=== PATIENT | male | born 1960 | race Caucasian/White ===

== ENCOUNTER 2016-08-26 06:58 | Emergency (ER) | payer SELFPAY ==
[2016-08-26] MEDS ORDERED: LIDOCAINE VIS-MYLANTA 30 ML UD PO ONE (07:52)
--- NOTE | 2016-08-26 07:55 | RAD ---
EXAM: Acute abdominal series. INDICATION: Abdominal pain, acute. COMPARISON: None. FINDINGS: Cardiac silhouette: Unremarkable. Janent: Unremarkable. Lobar consolidation: None. Pleural effusion: None. Pneumothorax: None. Other: None. Intraperitoneal free air: Negative. Bowel: No dilated loops of small bowel or air-fluid levels. Bones: Unremarkable. Other: None. IMPRESSION: 1. Nonspecific, nonobstructed bowel gas pattern. Electronically signed by: Edward Maya MD 08/26/2016 7:54 AM CDT
--- NOTE | 2016-08-26 10:05 | CT ---
Procedure: CT ABDOMEN PELVIS WITH IV CONTRAST Exam Date: 08/26/2016 Ordering Provider: Louis Tejeda Clinical Indication: Left lower quadrant abdominal pain Comparison: 11/27/1714 TECHNIQUE: 5 mm images were taken through the abdomen and pelvis after the administration of nonionic intravenous contrast material. Oral contrast was not administered. Coronal and sagittal reformatted images were generated. This exam was performed according to our departmental dose optimization program which includes use of automated exposure control, adjustment of the mA and/or kV according to patient size and/or use of iterative reconstruction technique. FINDINGS: Lower chest: Nonacute Abdomen: Liver and biliary system: Cirrhotic liver morphology. No liver lesions. No biliary ductal dilatation. Cholelithiasis without evidence of acute cholecystitis. Spleen: Enlarged, otherwise unremarkable. Pancreas: Unremarkable Adrenal glands: Unremarkable Kidneys: No suspicious lesions or hydronephrosis in either kidney. Lymph nodes: Shotty mesenteric and retroperitoneal lymph nodes. Retroperitoneum, abdominal wall, peritoneal cavity: No ascites. No free intraperitoneal air. Hazy infiltration of the mesentery and retroperitoneum in the lower abdomen with swirling of vessels. Vessels: No abdominal aortic aneurysm. There are portosystemic collaterals. Pelvis: Lymph nodes: No lymphadenopathy Bowel: No bowel obstruction. Colonic diverticulosis without evidence of diverticulitis. Normal appendix. No bowel wall thickening. Bladder: Unremarkable Pelvic organs: Unremarkable Bones: Nonacute IMPRESSION: 1. Features suggestive of intraperitoneal focal fat infarction in the left lower quadrant. 2. Cirrhotic liver morphology. 3. Cholelithiasis without evidence of acute cholecystitis. 4. Splenomegaly. 5. Colonic diverticulosis without evidence of diverticulitis. Electronically signed by: Osei Whitley MD 08/26/2016 10:04 AM CDT
[2016-08-26] MEDS ORDERED: ceFAZolin SODIUM 2 GM in SODIUM CHLORIDE 0.9% 100ML 100 ML IVPB ONE (10:32)
[2016-08-26] MEDS ORDERED: ceFAZolin SODIUM 1 GM VIAL ONE (10:35)
[2016-08-26] MEDS ORDERED: SODIUM CHLORIDE 0.9% 100ML 100 ML IVPB ONE (10:36)
--- NOTE | 2016-08-26 11:37 | ED.PDOC ---
History of Present Illness - General Chief Complaint: Abdominal Pain Stated Complaint: abdominal discomfort Time Seen by Provider: 08/26/16 07:04 Source: patient Exam Limitations: no limitations - History of Present Illness Initial Comments: The patient is a 56-year-old male presenting with left lower abdominal discomfort present for approximately 24 hours. The pain is worse when standing up straight or lying back flat. It is improved by leaning forward. He has had some mild nausea. pain is moderate. no vomiting. He has been having bowel movements and passing gas. No definite rebound signs. No back pain. No trauma. He had an endoscopy 7 years ago that was normal. No weight loss. No previous definite blood in stools. Timing/Duration: 24 hours Severity: moderate Improving Factors: nothing Worsening Factors: nothing Associated Symptoms: nausea/vomiting Allergies/Adverse Reactions: Allergies NO KNOWN ALLERGY Allergy (Verified 08/26/16 07:13) Home Medications: Ambulatory Orders Omeprazole Magnesium [Prilosec Otc] 20 mg PO DAILY 10/17/15 Ztgzuegliawii-Wchu-Lugqdmmihv [Fioricet] 1 ea PO Q8H PRN #21 tab 08/26/16 Review of Systems - Review of Systems Constitutional: States: no symptoms reported EENTM: States: no symptoms reported Respiratory: States: no symptoms reported Cardiology: States: no symptoms reported Gastrointestinal/Abdominal: States: see HPI Genitourinary: States: no symptoms reported Musculoskeletal: States: no symptoms reported Skin: States: no symptoms reported Neurological: States: no symptoms reported Endocrine: States: no symptoms reported All other Systems: No Change from Baseline Past Medical History (General) - Patient Medical History Hx Seizures: No Hx Stroke: No Hx Dementia: No Hx Asthma: No Hx of COPD: No Hx Cardiac Disorders: No Hx Congestive Heart Failure: No Hx Pacemaker: No Hx Hypertension: No Hx Thyroid Disease: No Hx Diabetes: No Hx Gastroesophageal Reflux: Yes Hx Renal Disease: No Hx Cancer: No Hx of HIV: No Hx Hepatitis C: No Hx MRSA: No - Vaccination History Hx Tetanus, Diphtheria Vaccination: Yes - 2010 Hx Influenza Vaccination: No Hx Pneumococcal Vaccination: No - Social History Hx Tobacco Use: Yes Hx Chewing Tobacco Use: No Hx Alcohol Use: Yes - weekends Hx Substance Use: No Hx Substance Use Treatment: No Hx Depression: No Hx Physical Abuse: No Hx Emotional Abuse: No Hx Suspected Abuse: No - Female History Patient : No Family Medical History - Family History Father Family History: No Known Living Status: Mother Living Status: Age at (years of age): 60 Cause of : cancer Physical Exam - Physical Exam General Appearance: Alert, No apparent distress Eye Exam: bilateral normal Ears, Nose, Throat: normal ENT inspection, normal pharynx Neck: full range of motion, supple, normal inspection Respiratory: chest non-tender, lungs clear, normal breath sounds, no respiratory distress, no accessory muscle use Cardiovascular/Chest: normal peripheral pulses, regular rate, rhythm, no edema Peripheral Pulses: radial,right: 2+, radial,left: 2+, dorsalis pedis,right: 2+, dorsalis pedis,left: 2+ Gastrointestinal/Abdominal: normal bowel sounds, soft, other - see history of present illness. No palpable mass. He does have a small umbilical hernia. Most of the discomfort is located in the left lower quadrant. Rectal Exam: deferred Back Exam: normal inspection, no CVA tenderness, no vertebral tenderness Extremity: normal range of motion, non-tender, normal inspection, no pedal edema , normal capillary refill Neurologic: alert, normal mood/affect, oriented x 3 Skin Exam: normal color Comments: Vital Signs - 24 hr 08/26/16 08/26/16 08/26/16 07:11 08:18 09:40 Temperature 98.5 F 98.2 F Pulse Rate [ 94 H 87 79 Left Radial] Respiratory 20 20 20 Rate Blood Pressure 154/78 141/86 152/72 [Left Arm] O2 Sat by Pulse 96 94 L 96 Oximetry Progress - Progress Progress: 08/26/16 11:39 the patient is a 56-year-old male presenting with left lower quadrant pain that appears to be due to a small area of omental ischemia. There is no evidence of bowel ischemia. The patient was seen by general surgery which is recommended conservatively following the patient as an outpatient. There is no indication for antibiotics at this time. The patient is to follow-up with his primary care doctor in 2-3 days. The patient does have findings of cirrhosis on his CT scan and does have significant anemia that is likely due to iron deficiency. He should be set up for gastroenterology for these 2 issues and started on iron once his abdominal pain is improving. He will be written for Fioricet for as needed use. Limit Tylenol use otherwise. Limit alcohol intake. ER warnings were given for any acute worsening. of note there was a mention of a left inguinal hernia on CT scan several years ago that is not noted here. there is not one seen today on CT scan and certainly not one palpable. - Results/Orders Results/Orders: Laboratory Results - last 24 hr 08/26/16 08/26/16 07:52 08:26 WBC 5.8 RBC 4.84 Hgb 10.3 L Hct 33.1 L MCV 68.5 L MCH 21.2 L MCHC 31.2 L RDW 24.9 H Plt Count 116 L MPV 8.3 Absolute Neuts (auto) 2.60 Absolute Lymphs (auto) 1.00 Absolute Monos (auto) 0.30 Absolute Eos (auto) 1.90 H Absolute Basos (auto) 0.00 Neutrophils % 44.4 Lymphocytes % 16.9 L Monocytes % 5.6 Eosinophils % 32.8 H Basophils % 0.3 Normal RBC Morphology 4+aniso PT 12.5 INR 1.110 PTT (SP) 34.0 Sodium 137 Potassium 4.3 Chloride 103 Carbon Dioxide 24 Anion Gap 14.3 BUN 16 Creatinine 0.82 BUN/Creatinine Ratio 19.5 Random Glucose 105 Serum Osmolality 275.4 Calcium 9.2 Total Bilirubin 0.4 AST 39 ALT 56 Alkaline Phosphatase 66 Serum Total Protein 8.1 Albumin 3.8 Globulin 4.3 H Albumin/Globulin Ratio 0.9 L Amylase 17 L Lipase 39 Urine Color Yellow Urine Appearance Clear Urine pH 6.0 Ur Specific [place] 1.010 Urine Protein Negative Urine Glucose (UA) Negative Urine Ketones Negative Urine Blood Negative Urine Nitrite Negative Urine Bilirubin Negative Urine Urobilinogen 0.2 Ur Leukocyte Esterase Negative Urine RBC 0-1 Urine WBC 0 Ur Epithelial Cells 0-[address] scan of the abdomen and pelvis shows some changes consistent with cirrhosis. Additionally there is a small area of possible fat necrosis in the mesentery in the left lower quadrant. No significant hernia seen on the CT scan. No evidence of any bowel ischemia. Departure - Departure Clinical Impression: Fat necrosis of omentum Disposition: Discharge to Home or Self Care Condition: Fair Departure Forms: ED Discharge - Pt. Copy, Patient Portal Self Enrollment Instructions: DI for Abdominal Pain-Adult Diet: bland diet - avoid alcohol Activity: increase activity as tolerated Referrals: Brule,Shy, IN[employer]RASTRU[employer]URE ENGINEER [Primary Care Provider] - 1-5 Days Prescriptions: Rtkgluijhuneh-Kmem-Kelfiximfk [Fioricet] 1 ea PO Q8H PRN #21 tab PRN Reason: Pain Home Medications: Ambulatory Orders Omeprazole Magnesium [Prilosec Otc] 20 mg PO DAILY 10/17/15 Bvcvzdjccbdkl-Lmdn-Izolxpzsyr [Fioricet] 1 ea PO Q8H PRN #21 tab 08/26/16 Additional Instructions: the patient is a 56-year-old male presenting with left lower quadrant pain that appears to be due to a small area of omental ischemia. There is no evidence of bowel ischemia. The patient was seen by general surgery which is recommended conservatively following the patient as an outpatient. There is no indication for antibiotics at this time. The patient is to follow-up with his primary care doctor in 2-3 days. The patient does have findings of cirrhosis on his CT scan and does have significant anemia that is likely due to iron deficiency. He should be set up for gastroenterology for these 2 issues and started on iron once his abdominal pain is improving. He will be written for Fioricet for as needed use. Limit Tylenol use otherwise. Limit alcohol intake. ER warnings were given for any acute worsening. of note there was a mention of a left inguinal hernia on CT scan several years ago that is not noted here. there is not one seen today on CT scan and certainly not one palpable.
[2016-08-26] MEDS ORDERED: HYDROcodone 7.5MG/APAP 325MG 1 EA TAB PO ONE (11:43)
[2016-08-26 12:00] VITALS: BP 150/74; TEMP 98; O2SAT 95
--- NOTE | 2016-08-26 17:34 | CONS ---
DATE OF CONSULTATION: 08/26/16 REFERRING PHYSICIAN: Dr. Louis Tejeda, Emergency Room CHIEF COMPLAINT: Abdominal pain. HISTORY OF PRESENT ILLNESS: The patient is a 56 year-old male who previously was diagnosed with a left inguinal hernia on CT scan. He presented to the Emergency Room with approximately a 24 hour history of abdominal pain without associated nausea, vomiting, fever or chills or diarrhea. He denied episode of same discrete discomfort. Denied discrete injury. He denied blood per rectum and melenic stools. PAST MEDICAL HISTORY: Otherwise unremarkable PAST SURGICAL HISTORY: Unremarkable as far as abdominal surgeries. FAMILY HISTORY: Noncontributory. SOCIAL HISTORY: The patient lives in [place]. Works in outdoor labor and working heavy equipment. PHYSICAL EXAMINATION: GENERAL: The patient is awake, alert and cooperative, and in no acute distress. CHEST: Equal breath sounds bilaterally. HEART: Regular rhythm. ABDOMEN: Soft, distended. There is tenderness in the left lower quadrant. There is tenderness over the left inguinal canal but no hernia is identified. Testicle is within normal limits. LABORATORY: White blood cell count is within normal limits. CT scan revealed what appeared to be some ischemic fat within the abdominal cavity with no sign of an obvious hernia and no sign of inflammatory process involving the bowel. No free fluid, free air or abscess cavity. He was noted to have a large amount of stool. IMPRESSION: 1. Ischemic mesenteric fat of uncertain etiology. No sign of an incarcerated hernia or strangulated hernia, or inflammatory process involving the bowel. RECOMMENDATION: Push fluids. Will treat him with some analgesics and also recommend that he work on his catharsis from above to clean out his obstipation , probably using MiraLAX. The patient is also informed to come back sooner if he develops nausea or vomiting, fever or chills, increasing abdominal pain or develops a mass in his groin. #[id number] [facility]
== END 2016-08-26 11:58 | disposition home or self-care (01) ==
LOC: ER 06:58
DX: K65.4 Sclerosing mesenteritis (principal); K21.9 Gastro-esophageal reflux disease without esophagitis; D64.9 Anemia, unspecified; Z87.891 Personal history of nicotine dependence
CPT/HCPCS: 74020; 74177; 80053; 81001; 82150; 83690; 85025; 85610; 85730; J0690; J7050

== ENCOUNTER 2016-09-01 17:33 | Emergency (ER) | payer SELFPAY ==
--- NOTE | 2016-09-01 18:27 | ED.PDOC ---
History of Present Illness - General Chief Complaint: Abdominal Pain Stated Complaint: abdominal pain Time Seen by Provider: 09/01/16 17:50 Information Source: patient, RN notes reviewed, Vital Signs reviewed Exam Limitations: no limitations - History of Present Illness Initial Comments: Patient her with c/o LUQ abdominal pain that is sharp. IT is worsened by coughing and deep breathing. No fever, chills, nausea, vomiting or diarrhea. He was seen here on 08/26/16 for LLQ abd pain. He was diagnosed with fat necrosis. He was advised to use Miralax to clean out his colon. He saw his doctor on Thursday but laxative had not started working yet. Thursday night and Thursday the laxative started working well and he feels that he got well cleaned out. On Thursday the pain moved to his LUQ and became sharp and worse. Abdominal Pain Onset Location: LUQ Pain Radiation: back - L flank Quality: severe, sharpness Timing/Duration: days - 2 Improving Factors: nothing Worsening Factors: movement, other - deep breathing and coughing Associated Symptoms: back pain, fever/chills - Low grade temp to 100.1 Review of Systems - Review of Systems Constitutional: States: fever. Denies: malaise Respiratory: States: cough. Denies: orthopnea, short of breath, stridor Cardiology: States: no symptoms reported Gastrointestinal/Abdominal: States: see HPI, abdominal pain. Denies: diarrhea, nausea, vomiting Genitourinary: States: no symptoms reported Musculoskeletal: States: back pain Skin: States: no symptoms reported Neurological: States: no symptoms reported. Denies: headache Past Medical History (General) - Patient Medical History Hx Seizures: No Hx Stroke: No Hx Dementia: No Hx Asthma: No Hx of COPD: No Hx Cardiac Disorders: No Hx Congestive Heart Failure: No Hx Pacemaker: No Hx Hypertension: No Hx Thyroid Disease: No Hx Diabetes: No Hx Gastroesophageal Reflux: Yes Hx Renal Disease: No Hx Cancer: No Hx of HIV: No Hx Hepatitis C: No Hx MRSA: No Surgical History: no surgical history - Vaccination History Hx Tetanus, Diphtheria Vaccination: Yes - 2010 Hx Influenza Vaccination: No Hx Pneumococcal Vaccination: No - Social History Hx Tobacco Use: Yes Hx Chewing Tobacco Use: No Hx Alcohol Use: Yes - weekends Hx Substance Use: No Hx Substance Use Treatment: No Hx Depression: No Hx Physical Abuse: No Hx Emotional Abuse: No Hx Suspected Abuse: No - Activities of Daily Living Hospice Agency (if applicable):: None - Female History Patient is a Female of Child Bearing Age (10 -59 yrs old): No Patient : No Family Medical History - Family History Father Family History: No Known Living Status: Mother Living Status: Age at (years of age): 60 Cause of : cancer Physical Exam - Physical Exam General Appearance: Alert, Comfortable, No apparent distress, Well Developed, Well Groomed, Well Hydrated, Well Nourished Neck: non-tender, full range of motion, supple, normal inspection Respiratory: lungs clear, normal breath sounds, no respiratory distress, no accessory muscle use Cardiovascular/Chest: regular rate, rhythm, no edema, no gallop, no murmur Gastrointestinal/Abdominal: normal bowel sounds, no organomegaly, guarding - LUQ , tenderness - LUQ Back Exam: normal inspection, no CVA tenderness, no vertebral tenderness Extremity: normal range of motion, normal inspection, no pedal edema Neurologic: alert, normal mood/affect, oriented x 3 Skin Exam: normal color, warm/dry Progress - Progress Progress: 09/01/16 20:01 Discussed lab and X-ray results. No obvious cause of his abdominal pain but he does have cirrhosis and an enlarged spleen. Needs to follow up with GI for further evaluation/management. - Results/Orders Results/Orders: Laboratory Tests 09/01/16 09/01/16 09/01/16 18:10 18:10 19:15 WBC 9.8 RBC 4.76 Hgb 10.0 L Hct 32.2 L MCV 67.7 L MCH 21.0 L MCHC 31.0 L RDW 23.9 H Plt Count 131 MPV 8.3 Absolute Neuts (auto) 3.50 Absolute Lymphs (auto) 1.20 Absolute Monos (auto) 0.50 Absolute Eos (auto) 4.50 H Absolute Basos (auto) 0.00 Neutrophils % 36.0 L Lymphocytes % 12.3 L Monocytes % 5.5 Eosinophils % 45.9 H Basophils % 0.3 Sodium 134 L Potassium 3.9 Chloride 103 Carbon Dioxide 24 Anion Gap 10.9 L BUN 15 Creatinine 0.75 BUN/Creatinine Ratio 20.0 Random Glucose 156 H Serum Osmolality 272.3 L Calcium 8.8 Total Bilirubin 0.4 AST 30 ALT 39 Alkaline Phosphatase 65 Serum Total Protein 8.2 Albumin 3.8 Globulin 4.4 H Albumin/Globulin Ratio 0.9 L Amylase 11 L Lipase 32 Monoscreen Negative - EKG/XRAY/CT CT Ordered: Yes - gallstones, cirrhosis & enlarged slpeen Departure - Departure Clinical Impression: Enlargement of spleen Abdominal pain Qualifiers: Abdominal location: left upper quadrant Qualified Code(s): R10.12 - Left upper quadrant pain Cirrhosis of liver Qualifiers: Hepatic cirrhosis type: unspecified biliary cirrhosis Qualified Code(s): K74.5 - Biliary cirrhosis, unspecified Time of Disposition: 20:03 Disposition: Discharge to Home or Self Care Condition: Good Departure Forms: ED Discharge - Pt. Copy, Patient Portal Self Enrollment Instructions: DI for Abdominal Pain-Adult Diet: low fat, low cholesterol Activity: increase activity as tolerated Referrals: Alphonso Ware MD [Consulting Staff] - 1-5 Days Home Medications: Ambulatory Orders Omeprazole Magnesium [Prilosec Otc] 20 mg PO DAILY 10/17/15
--- NOTE | 2016-09-01 19:03 | CT ---
PROCEDURE: Abdomen/Pelvis w/Contrast HISTORY: Sharp LUQ pain Indication: Same as above Comparison: None . Technique: CT of the abdomen and pelvis was done with intravenous contrast. Images were obtained from the lung base to the level of the pubic symphysis in axial plane, followed by orthogonal sagittal and coronal reconstruction. Oral contrast was not given for the study. The patient was injected with radiographic intravenously, without any documented immediate adverse reactions. This exam was performed according to our departmental dose-optimization program, which includes automated exposure control, adjustment of the mA and/or KV according to the patient's size and/or use of iterative reconstruction technique. FINDINGS: Images through the lung bases do not show any focal infiltrates or pleural effusions. The liver is shrunken and has nodular contour suggestive of underlying changes of cirrhosis. The spleen is enlarged measuring 17 cm in length. There is presence of multiple intraluminal gallstones in a contracted gallbladder. Note is made of mild varices in the dinora hepatis, peripancreatic region, perisplenic, perigastric and paraesophageal region. There is a tiny hiatal hernia There is minimal circumferential thickening of the wall of the urinary bladder which may be due to underlying mild cystitis or due to under distention of the urinary bladder The pancreas and the bilateral adrenal glands appear unremarkable. The bilateral kidneys enhance with contrast in a normal fashion. The bilateral ureters and the bilateral periureteral soft tissues and fat planes are unremarkable. The small bowel appears unremarkable, without any evidence of small bowel obstruction or bowel wall thickening. There is no CT evidence of acute appendicitis, pericecal inflammatory change or ileocecal mesenteric adenitis. The ileocecal junction appears unremarkable. There is no CT evidence of acute colonic diverticulitis or colitis or large bowel obstruction. The splenic and portal veins are of normal caliber, without any filling defects. There is no pathological lymphadenopathy in the retroperitoneum or in the pelvic region. There is no evidence of free fluid or free air in the abdomen or the pelvic region. There is no clinically significant abdominal aortic aneurysm. There is presence of a small fat-containing periumbilical ventral hernia defect. There is presence of small fat-containing bilateral inguinal hernia defects The visualized lumbar spine shows mild multilevel degenerative change . The paravertebral soft tissues are unremarkable. The remainder of the pelvic structures are unremarkable. IMPRESSION: The liver is shrunken and has nodular contour suggestive of underlying changes of cirrhosis. The spleen is enlarged measuring 17 cm in length. There is presence of multiple intraluminal gallstones in a contracted gallbladder. Note is made of mild varices in the dinora hepatis, peripancreatic region, perisplenic, perigastric and paraesophageal region. There is a tiny hiatal hernia There is minimal circumferential thickening of the wall of the urinary bladder which may be due to underlying mild cystitis or due to under distention of the urinary bladder. Location of Interpretation: [facility] Electronically signed by: Estrada Cabrera MD 09/01/2016 7:02 PM CDT
[2016-09-01 19:25] VITALS: O2SAT 95
[2016-09-01 20:25] VITALS: BP 134/78; TEMP 98.9
== END 2016-09-01 20:19 | disposition home or self-care (01) ==
LOC: ER 17:33
DX: K74.5 Biliary cirrhosis, unspecified (principal); R16.1 Splenomegaly, not elsewhere classified; K80.80 Other cholelithiasis without obstruction; K21.9 Gastro-esophageal reflux disease without esophagitis; Z87.891 Personal history of nicotine dependence

== ENCOUNTER → 2016-09-11 | Outpatient (CLI) | payer SELFPAY | LOC: LAB.O 08:40 | PROVIDERS: ATTEND Internal Medicine Gastroenterology | DX: B19.20 Unspecified viral hepatitis C without hepatic coma (principal) ==

== ENCOUNTER → 2016-09-20 | Outpatient (CLI) | payer SELFPAY | END | disposition home or self-care (01) | LOC: LAB 08:58 | PROVIDERS: ATTEND Internal Medicine Gastroenterology | DX: K74.60 Unspecified cirrhosis of liver (principal); R10.32 Left lower quadrant pain ==

== ENCOUNTER 2016-10-23 11:35 | Emergency (ER) | payer SELFPAY ==
[2016-10-23 11:47] VITALS: TEMP 98.6
--- NOTE | 2016-10-23 12:49 | ED.PDOC ---
History of Present Illness - General Chief Complaint: GI Problem Stated Complaint: Sudden onset of N/V/D Time Seen by Provider: 10/23/16 12:49 Source: patient, RN notes reviewed, Vital Signs reviewed Exam Limitations: no limitations - History of Present Illness Initial Comments: Jim Butler 56 y/o male stated that he was nauseated this morning then had onset of watery diarrhea at work.Denies ill contact ,different food eaten no foreign travel. Timing/Duration: 1-3 hours Severity: moderate Improving Factors: nothing Worsening Factors: nothing Associated Symptoms: denies symptoms Allergies/Adverse Reactions: Allergies Codeine Adverse Reaction (Verified 10/23/16 11:48) Home Medications: Ambulatory Orders Omeprazole Magnesium [Prilosec Otc] 20 mg PO DAILY 10/17/15 Ferrous Sulfate [Iron] 65 mg PO DAILY 10/23/16 Promethazine Tab [Phenergan Tablet] 50 mg PO .Q4H PRN #20 tab 10/23/16 Review of Systems - Review of Systems Constitutional: States: no symptoms reported EENTM: States: no symptoms reported Respiratory: States: no symptoms reported Gastrointestinal/Abdominal: States: see HPI Genitourinary: States: no symptoms reported Musculoskeletal: States: no symptoms reported Skin: States: no symptoms reported Neurological: States: no symptoms reported Endocrine: States: no symptoms reported Hematologic/Lymphatic: States: no symptoms reported Past Medical History (General) - Patient Medical History Hx Seizures: No Hx Stroke: No Hx Dementia: No Hx Asthma: No Hx of COPD: No Hx Cardiac Disorders: No Hx Congestive Heart Failure: No Hx Pacemaker: No Hx Hypertension: No Hx Thyroid Disease: No Hx Diabetes: No Hx Gastroesophageal Reflux: Yes Hx Renal Disease: No Hx Cancer: No Hx of HIV: No Hx Hepatitis C: No Hx MRSA: No Surgical History: no surgical history - Vaccination History Hx Tetanus, Diphtheria Vaccination: Yes - 2010 Hx Influenza Vaccination: No Hx Pneumococcal Vaccination: No - Social History Hx Tobacco Use: Yes Hx Chewing Tobacco Use: No Hx Alcohol Use: Yes - weekends Hx Substance Use: No Hx Substance Use Treatment: No Hx Depression: No Hx Physical Abuse: No Hx Emotional Abuse: No Hx Suspected Abuse: No - Activities of Daily Living Patient Lives Alone: No - family - Female History Patient : No Family Medical History - Family History Father Family History: No Known Living Status: Hx Family Cancer: Yes - lungs,breast,oral,kidney-several family members Mother Living Status: Age at (years of age): 60 Cause of : cancer Physical Exam - Physical Exam General Appearance: Alert, Comfortable, Frail Eye Exam: bilateral normal Ears, Nose, Throat: hearing grossly normal, normal ENT inspection, normal pharynx Neck: non-tender, full range of motion, supple Respiratory: chest non-tender, lungs clear, normal breath sounds Cardiovascular/Chest: normal peripheral pulses, regular rate, rhythm, no murmur Peripheral Pulses: radial,right: 2+, radial,left: 2+ Gastrointestinal/Abdominal: normal bowel sounds, non tender, soft, no organomegaly Back Exam: normal inspection, no CVA tenderness, no vertebral tenderness Neurologic: no motor/sensory deficits, alert, normal mood/affect, oriented x 3 Skin Exam: normal color, warm/dry Lymphatic: no adenopathy Progress - Progress Progress: 10/23/16 14:22 Vital Signs - 8 hr 10/23/16 10/23/16 11:43 13:10 Temperature 98.6 F Pulse Rate [ 91 H 79 Right Radial] Respiratory 20 20 Rate Blood Pressure 132/94 140/84 [Right Arm] O2 Sat by Pulse 96 96 Oximetry - Results/Orders Results/Orders: Laboratory Results - last 24 hr 10/23/16 10/23/16 13:10 13:10 WBC 4.0 L RBC 5.22 Hgb 11.3 L Hct 36.3 L MCV 69.4 L MCH 21.6 L MCHC 31.0 L RDW 23.7 H Plt Count 103 L MPV 8.4 Absolute Neuts (auto) 2.40 Absolute Lymphs (auto) 0.90 L Absolute Monos (auto) 0.40 Absolute Eos (auto) 0.20 Absolute Basos (auto) 0.00 Neutrophils % 60.4 Lymphocytes % 23.4 Monocytes % 9.1 H Eosinophils % 5.9 H Basophils % 1.2 Sodium 139 Potassium 4.2 Chloride 106 Carbon Dioxide 22 Anion Gap 15.2 BUN 18 Creatinine 0.81 BUN/Creatinine Ratio 22.2 H Random Glucose 111 H Serum Osmolality 280.1 Calcium 9.5 Total Bilirubin 1.1 H AST 24 ALT 19 Alkaline Phosphatase 55 Serum Total Protein 9.1 H Albumin 4.6 Globulin 4.5 H Albumin/Globulin Ratio 1.0 L Lipase 29 Departure - Departure Clinical Impression: Diarrhea, Nausea Time of Disposition: 14:23 Disposition: Discharge to Home or Self Care Departure Forms: ED Discharge - Pt. Copy, Patient Portal Self Enrollment Instructions: Diarrhea, Diarrhea (Alternative Therapy) Diet: low fat, low cholesterol, other - avoid greasy,spicy,dairy foods until better;may have chicken broth,tea,jaqui shannon ,bananas,toast bread with jelly and diet to advance as tolerated Referrals: Shy Petit NP [Primary Care Provider] - 1-2 Weeks Prescriptions: Promethazine Tab [Phenergan Tablet] 50 mg PO .Q4H PRN #20 tab PRN Reason: Nausea Home Medications: Ambulatory Orders Omeprazole Magnesium [Prilosec Otc] 20 mg PO DAILY 10/17/15 Ferrous Sulfate [Iron] 65 mg PO DAILY 10/23/16 Promethazine Tab [Phenergan Tablet] 50 mg PO .Q4H PRN #20 tab 10/23/16 Additional Instructions: EXCUSE FROM WORK TODAY 10/23/2016;Return to work 10/24/2016
[2016-10-23] MEDS ORDERED: LACTATED RINGERS 1,000 ML IVS ONE (12:50)
[2016-10-23 14:45] VITALS: O2SAT 95
[2016-10-23 14:53] VITALS: BP 146/77
== END 2016-10-23 14:52 | disposition home or self-care (01) ==
LOC: ER 11:35
DX: R19.7 Diarrhea, unspecified (principal); R11.0 Nausea; K21.9 Gastro-esophageal reflux disease without esophagitis; Z88.6 Allergy status to analgesic agent; Z87.891 Personal history of nicotine dependence; Z79.899 Other long term (current) drug therapy
CPT/HCPCS: 36415; 80053; 83690; 85025; 87324; 87449; J7120

== ENCOUNTER 2017-02-01 05:45 | Emergency (ER) | payer SELFPAY ==
[2017-02-01 05:55] VITALS: BP 164/93; TEMP 99; O2SAT 98
[2017-02-01] MEDS ORDERED: predniSONE 20 MG TAB PO ONE (06:07)
[2017-02-01] MEDS ORDERED: KETOROLAC TROMETHAMINE INJ 30 MG/ML VIAL IM ONE (06:07)
[2017-02-01] MEDS ORDERED: diazePAM 5 MG TAB PO ONE (06:08)
[2017-02-01] MEDS ORDERED: HYDROcodone 5MG/APAP 325MG 1 EA TAB PO ONE (06:08)
--- NOTE | 2017-02-01 06:11 | ED.PDOC ---
History of Present Illness - General Chief Complaint: Back Pain or Injury Stated Complaint: low mid back pain radiates to right hip down leg Time Seen by Provider: 02/01/17 06:00 Source: patient Exam Limitations: no limitations - History of Present Illness Initial Comments: the patient is a 56-year-old male presenting to the emergency room secondary to low back pain primarily on the right extending from L2 down through L5 with sciatica down the right leg. Pain started when he was walking in [employer] yesterday. No recent trauma. Pain has gotten progressively worse over the last 18 hours. No incontinence. No falls. No loss of sensation. He does not have any loss of strength but does have increased pain with movement of the right lower extremity. The patient was seen here for similar episode back in October 2015. He had x-rays done at that time showing significant degenerative changes of the lumbar spine. He apparently did respond fairly well at that time to steroids and muscle relaxers. Timing/Duration: 24 hours Severity: moderate Improving Factors: nothing Worsening Factors: movement Associated Symptoms: denies symptoms Allergies/Adverse Reactions: Allergies Codeine Adverse Reaction (Verified 02/01/17 05:55) Home Medications: Ambulatory Orders Omeprazole Magnesium [Prilosec Otc] 20 mg PO DAILY 10/17/15 Carisoprodol [Soma] 350 mg PO Q6H PRN #40 tab 02/01/17 predniSONE [Prednisone] 20 mg PO DAILY #7 tab 02/01/17 Review of Systems - Review of Systems Constitutional: States: no symptoms reported EENTM: States: no symptoms reported Respiratory: States: no symptoms reported Cardiology: States: no symptoms reported Gastrointestinal/Abdominal: States: no symptoms reported Genitourinary: States: no symptoms reported Musculoskeletal: States: back pain Skin: States: no symptoms reported Neurological: States: see HPI Endocrine: States: no symptoms reported Hematologic/Lymphatic: States: no symptoms reported All other Systems: No Change from Baseline Past Medical History (General) - Patient Medical History Hx Seizures: No Hx Stroke: No Hx Dementia: No Hx Asthma: No Hx of COPD: No Hx Cardiac Disorders: No Hx Congestive Heart Failure: No Hx Pacemaker: No Hx Hypertension: No Hx Thyroid Disease: No Hx Diabetes: No Hx Gastroesophageal Reflux: Yes Hx Renal Disease: No Hx Cancer: No Hx of HIV: No Hx Hepatitis C: No Hx MRSA: No Surgical History: no surgical history - Vaccination History Hx Tetanus, Diphtheria Vaccination: Yes Hx Influenza Vaccination: Yes Hx Pneumococcal Vaccination: No - Social History Hx Tobacco Use: Yes Hx Chewing Tobacco Use: No Hx Alcohol Use: Yes - occasional Hx Substance Use: No Hx Substance Use Treatment: No Hx Depression: No Feels Threatened In Home Enviroment: No Feels Threatened In a Relationship: No Hx Physical Abuse: No Hx Emotional Abuse: No Hx Suspected Abuse: No - Female History Patient : No Family Medical History - Family History Father Family History: No Known Living Status: Hx Family Cancer: Yes - lungs,breast,oral,kidney-several family members Mother Living Status: Age at (years of age): 60 Cause of : cancer Physical Exam - Physical Exam General Appearance: Alert, Obvious distress Eye Exam: bilateral normal Ears, Nose, Throat: normal ENT inspection, normal pharynx Neck: full range of motion, supple Respiratory: lungs clear, normal breath sounds, no respiratory distress, no accessory muscle use Cardiovascular/Chest: normal peripheral pulses, no edema, other - regular rate Peripheral Pulses: radial,right: 2+, radial,left: 2+, dorsalis pedis,right: 2+, dorsalis pedis,left: 2+ Gastrointestinal/Abdominal: non tender, soft - obese Rectal Exam: deferred Back Exam: no vertebral tenderness, CVA tenderness (R) Extremity: non-tender, no pedal edema, no calf tenderness, normal capillary refill, other - pain with movement of the right lower extremity. No pain to palpation. Neurologic: dining room manager II-XII nml as tested, no motor/sensory deficits - see above, alert, normal mood/affect, oriented x 3 Skin Exam: normal color Comments: Vital Signs - 24 hr 02/01/17 05:47 Temperature 99.0 F Pulse Rate [ 95 H monitor] Respiratory 20 Rate Blood Pressure 164/93 [Left Arm] O2 Sat by Pulse 98 Oximetry Progress - Progress Progress: 02/01/17 06:13 the patient is a 56-year-old male presenting with a recurrence of his right lower back pain with right lower extremity sciatica, for which he was also seen a year and a half ago here. x-rays were performed at that time and thus will not be repeated yet. The patient is currently receiving a dose of Toradol, a muscle relaxer, pain medication and some prednisone here. He will be continued on Soma and prednisone for the next week otherwise. Topical heat in the form of a heat pad as well as icy hot or Biofreeze may prove beneficial. He does need to try and stretch out the back as best he can over the next few days. If he fails to improve with these measures then additional workup may be warranted with his primary care doctor. eR warnings were given. additionally, in review of his previous studies done in the system, lab work in October of this year showed some significant microcytosis. He does need to follow- up with his primary care doctor within the next week for reevaluation of his back as well as a repeat hemoglobin and hematocrit and probably some additional iron studies given his low MCV at that time, and further evaluation as appropriate based upon those studies. 02/01/17 06:19 02/01/17 06:20 Departure - Departure Clinical Impression: Low back pain with sciatica Qualifiers: Chronicity: acute Back pain laterality: right Sciatica laterality: sciatica of right side Qualified Code(s): M54.41 - Lumbago with sciatica, right side Disposition: Discharge to Home or Self Care Condition: Fair Departure Forms: ED Discharge - Pt. Copy, Patient Portal Self Enrollment Instructions: DI for Back Pain With Sciatica Diet: regular diet Activity: increase activity as tolerated Referrals: Anastasiia Mortensen NP [Primary Care Provider] - 1-2 Weeks Prescriptions: Carisoprodol [Soma] 350 mg PO Q6H PRN #40 tab PRN Reason: Muscle Spasms predniSONE [Prednisone] 20 mg PO DAILY #7 tab Home Medications: Ambulatory Orders Omeprazole Magnesium [Prilosec Otc] 20 mg PO DAILY 10/17/15 Carisoprodol [Soma] 350 mg PO Q6H PRN #40 tab 02/01/17 predniSONE [Prednisone] 20 mg PO DAILY #7 tab 02/01/17 Additional Instructions: the patient is a 56-year-old male presenting with a recurrence of his right lower back pain with right lower extremity sciatica, for which he was also seen a year and a half ago here. x-rays were performed at that time and thus will not be repeated yet. The patient is currently receiving a dose of Toradol, a muscle relaxer, pain medication and some prednisone here. He will be continued on Soma and prednisone for the next week otherwise. Topical heat in the form of a heat pad as well as icy hot or Biofreeze may prove beneficial. He does need to try and stretch out the back as best he can over the next few days. If he fails to improve with these measures then additional workup may be warranted with his primary care doctor. eR warnings were given. additionally, in review of his previous studies done in the system, lab work in October of this year showed some significant microcytosis. He does need to follow-up with his primary care doctor within the next week for reevaluation of his back as well as a repeat hemoglobin and hematocrit and probably some additional iron studies given his low MCV at that time, and further evaluation as appropriate based upon those studies.
== END 2017-02-01 06:43 | disposition home or self-care (01) ==
LOC: ER 05:45
DX: M54.41 Lumbago with sciatica, right side (principal); K21.9 Gastro-esophageal reflux disease without esophagitis; Z87.891 Personal history of nicotine dependence; Z88.6 Allergy status to analgesic agent
CPT/HCPCS: J1885; J7512

== ENCOUNTER 2017-07-15 07:35 | Emergency (ER) | payer SELFPAY ==
[2017-07-15 07:45] VITALS: TEMP 98.1
--- NOTE | 2017-07-15 07:54 | ED.PDOC ---
History of Present Illness - General Chief Complaint: General Stated Complaint: neck pain Time Seen by Provider: 07/15/17 07:47 Source: patient Exam Limitations: no limitations - History of Present Illness Initial Comments: Jim Butler 56 y/o male stated that while he was driving home last night felt some lighting jolt the back of his neck radiating down to his jaws and upper left shoulder.Had also burning and numbness on his left upper shoulders which had been constant since last night.Denies weakness ,dysarthria,chest pain symptoms,blurry vision,or facial numbness.No chronic medical problems. Timing/Duration: 24 hours Severity: moderate Improving Factors: nothing Worsening Factors: nothing Associated Symptoms: other - see hpi Allergies/Adverse Reactions: Allergies Codeine Adverse Reaction (Verified 07/15/17 07:46) Nausea Home Medications: Ambulatory Orders Omeprazole Magnesium [Prilosec Otc] 20 mg PO DAILY 10/17/15 RX: Baclofen 20 mg PO BID #20 tab 07/15/17 RX: Gabapentin 300 mg PO BEDTIME #20 cap 07/15/17 RX: Tramadol HCl 50 mg PO TID PRN #20 tab 07/15/17 RX: predniSONE 20 mg PO DAILY #10 tab 07/15/17 Review of Systems - Review of Systems Constitutional: States: no symptoms reported EENTM: States: no symptoms reported Respiratory: States: no symptoms reported Cardiology: States: no symptoms reported Gastrointestinal/Abdominal: States: no symptoms reported Genitourinary: States: no symptoms reported Musculoskeletal: States: see HPI Skin: States: no symptoms reported Neurological: States: no symptoms reported Past Medical History (General) - Patient Medical History Hx Seizures: No Hx Stroke: No Hx Dementia: No Hx Asthma: No Hx of COPD: No Hx Cardiac Disorders: No Hx Congestive Heart Failure: No Hx Pacemaker: No Hx Hypertension: No Hx Thyroid Disease: No Hx Diabetes: No Hx Gastroesophageal Reflux: Yes Hx Renal Disease: No Hx Cancer: No Hx of HIV: No Hx Hepatitis C: No Hx MRSA: No Hx Other PMH: Yes - chronic backache Surgical History: no surgical history - Vaccination History Hx Tetanus, Diphtheria Vaccination: No Hx Influenza Vaccination: No Hx Pneumococcal Vaccination: No - Social History Hx Tobacco Use: Yes Hx Chewing Tobacco Use: No Hx Alcohol Use: Yes - occasional Hx Substance Use: No Hx Substance Use Treatment: No Hx Depression: No Hx Physical Abuse: No Hx Emotional Abuse: No Hx Suspected Abuse: No - Female History Patient : No Family Medical History - Family History Father Family History: No Known Living Status: Hx Family Cancer: Yes - lungs,breast,oral,kidney-several family members Mother Living Status: Age at (years of age): 60 Cause of : cancer Physical Exam - Physical Exam General Appearance: Alert, Comfortable, No apparent distress Eye Exam: bilateral normal Ears, Nose, Throat: hearing grossly normal, normal ENT inspection, normal pharynx Neck: non-tender, full range of motion, normal inspection Respiratory: chest non-tender, lungs clear, normal breath sounds, no respiratory distress Cardiovascular/Chest: normal peripheral pulses, regular rate, rhythm, no murmur Peripheral Pulses: radial,right: 2+, radial,left: 2+ Gastrointestinal/Abdominal: normal bowel sounds, non tender, soft, no organomegaly Back Exam: no CVA tenderness, no vertebral tenderness Extremity: non-tender, normal inspection, no calf tenderness Neurologic: no motor/sensory deficits, alert, oriented x 3 Skin Exam: normal color Lymphatic: no adenopathy Progress - Progress Progress: 07/15/17 07:58 Vital Signs 07/15/17 07:40 Temperature 98.1 F Pulse Rate [ 54 L pulse ox] Respiratory 20 Rate Blood Pressure 172/83 [Left Arm] O2 Sat by Pulse 97 Oximetry - EKG/XRAY/CT XRAY: c-spine - degenerative disc disease Departure - Departure Clinical Impression: Cervical radiculopathy due to degenerative joint disease of spine Time of Disposition: 08:50 Disposition: Discharge to Home or Self Care Departure Forms: ED Discharge - Pt. Copy, Patient Portal Self Enrollment Instructions: Spinal Stenosis, DI for Cervical Radiculopathy Referrals: Anastasiia Mortensen NP [Nurse Practitioner] - 1-2 Weeks Prescriptions: RX: Baclofen 20 mg PO BID #20 tab RX: Gabapentin 300 mg PO BEDTIME #20 cap RX: predniSONE 20 mg PO DAILY #10 tab RX: Tramadol HCl 50 mg PO TID PRN #20 tab PRN Reason: Pain Home Medications: Ambulatory Orders Omeprazole Magnesium [Prilosec Otc] 20 mg PO DAILY 10/17/15 RX: Baclofen 20 mg PO BID #20 tab 07/15/17 RX: Gabapentin 300 mg PO BEDTIME #20 cap 07/15/17 RX: Tramadol HCl 50 mg PO TID PRN #20 tab 07/15/17 RX: predniSONE 20 mg PO DAILY #10 tab 07/15/17 Additional Instructions: FOLLOW UP WITH PRIMARY MD 07/16/2017;Return to emergency room as needed
--- NOTE | 2017-07-15 08:35 | RAD ---
EXAM DESCRIPTION: Cervical Spine,5 Views CLINICAL HISTORY: pain COMPARISON: None Available. TECHNIQUE: AP/lateral/ both oblique/open-mouth odontoid FINDINGS: There is anatomic alignment of C1-C5 and top of C6 on lateral view. Marked degenerative narrowing at the atlantodens interval. Spurring with mild loss of disc height is seen at C4-5 and C5-6. No prevertebral soft tissue swelling. There is preservation of the spinal laminar line. Frontal view shows degenerative facet spurring at the C5-6 level right more than left. Normal alignment of spinous processes. Carotid calcification is seen on the left. Oblique views show significant encroachment upon the left C5-6 neural foramen by uncovertebral joint and facet spurs. Mild encroachment upon the right C4-5 and C5-6 neural foramina by facet spurring. Other right-sided neural foramina appear widely patent. There is no lytic or destructive bone lesion or fracture. IMPRESSION: Degenerative changes as described. Electronically signed by: Natalio Dozier MD 07/15/2017 8:34 AM [facility]
[2017-07-15] MEDS: predniSONE 20 MG TAB PO ONE (08:36)
[2017-07-15] MEDS: ORPHENADRINE CITRATE 30 MG/ML AMP IM ONE (08:39)
[2017-07-15] MEDS: KETOROLAC TROMETHAMINE INJ 30 MG/ML VIAL IM ONE (08:39)
[2017-07-15 09:03] VITALS: BP 154/81; O2SAT 96
== END 2017-07-15 09:10 | disposition home or self-care (01) ==
LOC: ER 07:35
DX: M50.10 Cervical disc disorder with radiculopathy, unspecified cervical region (principal)
CPT/HCPCS: 72050; J1885; J2360; J7512

== ENCOUNTER → 2017-08-07 | Outpatient (CLI) | payer SELFPAY ==
--- NOTE | 2017-08-10 11:41 | MRI ---
EXAM DESCRIPTION: Cervical Spine: MRI. CLINICAL HISTORY: DEGENERATION OF CERVICAL INTERVERTEBRAL DISC COMPARISON: Cervical spine radiographs 07/15/2017. TECHNIQUE: Multiplanar MRI, multiple sequences, non-contrast High-field. FINDINGS: C3-4: Minimal disc desiccation posterior midline 2 mm bulge not abutting the cord. Bilateral uncinate spurs. Mild right neural foraminal stenosis and moderate narrowing of the left foramen. Facets are negative. C4-5: Disc desiccation and disc space maintained. Minimal anterior and posterior bulging abutting the cord posteriorly. Bilateral moderate neural foraminal narrowing. Borderline canal stenosis. Facets are negative. C5-6: Disc desiccation and minimal disc space loss. Anterior bulging. Posterior broad-based 3 mm bulge abutting the cord. Moderate canal narrowing. Bilateral uncinate spurs. Bilateral mild facet arthrosis. Bilateral moderate neural foraminal narrowing. C6-7: Disc desiccation and minimal disc space loss. Left posterior 3 to 4 mm disc protrusion abutting the left ventral cord and the left C7 nerve. Borderline left paracentral canal stenosis. Left uncinate spur and mild left neural foraminal stenosis. Left facet arthrosis, right facet unremarkable. C7-T1: Normal signal in the disc. Tiny posterior bulge. Moderate canal narrowing. Right neuroforamen patent. Left uncinate spur and left facet arthrosis and hypertrophy resulting in left neural foraminal stenosis. Right facet negative. Normal signal in the C2-C3 disc with no bulging. Disc spaces preserved. Canal and neural foramina are patent. Facets negative. No cord compression or cord edema. Spine is minimally lordotic. Atlantoaxial joint is unremarkable. Base of the cerebellar tonsils is at the level of the foramen magnum. Paravertebral soft tissues are unremarkable. Vertebral bodies are not compressed at any level. Normal marrow signal in the remaining vertebral bodies and the posterior elements. IMPRESSION: 1. Multiple levels of disc bulging, facet arthrosis, and uncinate spurs. 2. Posterior C3-4 bulge. Right neural foraminal stenosis. Correlate for right C4 radiculopathy. 3. Superior C4-5 disc bulge with borderline canal stenosis. 4. Posterior C5-6 disc bulge and bilateral uncinate spurs and facet arthrosis. Moderate neural foraminal narrowing. 5. Posterior protrusion of the C6-7 disc with left paracentral canal stenosis. Mild left neural foraminal stenosis. Correlate for left C7 radiculopathy. 6. Multifactorial left neural foraminal stenosis C7-T1. Correlate for left C8 radiculopathy. Electronically signed by: Zack Moran MD 08/10/2017 11:40 AM CDT
== END ==
LOC: MRI 13:00
DX: M50.30 Other cervical disc degeneration, unspecified cervical region (principal); M50.221 Other cervical disc displacement at C4-C5 level; M50.222 Other cervical disc displacement at C5-C6 level; M50.223 Other cervical disc displacement at C6-C7 level

== ENCOUNTER → 2017-08-18 | Outpatient (CLI) | payer SELFPAY | END | disposition home or self-care (01) | LOC: LAB.O 14:07 | DX: R94.5 Abnormal results of liver function studies (principal) ==

== ENCOUNTER 2018-01-18 14:49 | Emergency (ER) | payer SELFPAY ==
--- NOTE | 2018-01-18 15:35 | RAD ---
EXAM DESCRIPTION: Abdomen Series three x-ray views CLINICAL HISTORY: hyperglycemia, abd pain, wt loss COMPARISON: None. TECHNIQUE: Upright PA chest with supine and upright views of the abdomen FINDINGS: The lungs are clear on the chest x-ray. Heart size is normal with normal pulmonary vascularity. No consolidating infiltrate pneumothorax or pleural effusion. Supine view of the abdomen shows clustered calcifications in the right upper quadrant which could be gallstones. The position is somewhat more medial than expected however. The appearance is not typical of renal calculi. No other findings to suggest renal stones or ureteral stones. Vascular calcification in the right pelvis. Upright view the abdomen is negative for abnormal air-fluid levels or free air under the diaphragm. Patient CT of the abdomen September 01, 2016 which showed gallstones in the gallbladder. Liver appears cirrhotic. No renal stones were seen at that time. IMPRESSION: Clear lungs. Negative for free air or small bowel obstruction. Gallstones. Electronically signed by: Natalio Dozier MD 01/18/2018 3:33 PM CDT
[2018-01-18] MEDS: SODIUM CHLORIDE 0.9% 1000ML 1,000 ML IVS ONE ×2 (15:52→17:02)
[2018-01-18] MEDS: INSULIN LISPRO 100 UNITS/ML PEN SUBCU ONE (15:52)
--- NOTE | 2018-01-18 18:19 | ED.PDOC ---
History of Present Illness - General Chief Complaint: Diabetic Complaint Stated Complaint: high blood sugar Time Seen by Provider: 01/18/18 15:01 Source: patient Exam Limitations: no limitations - History of Present Illness Initial Comments: the patient is a 57-year-old male presenting to the emergency room secondary toseveral weeks of generalized fatigue and dry mouth. He was diagnosed with diabetes several months ago but has had poor control and only been taking insulin. He is a [place] patient and has been unable to get adequate care from the [place] and is awaiting arrangement for local care provider. He checked his blood sugar today and it was reading higher than his glucometer so he showed up here. Timing/Duration: unsure Severity: moderate Improving Factors: nothing Worsening Factors: nothing Associated Symptoms: loss of appetite, malaise, nausea/vomiting, weakness Allergies/Adverse Reactions: Allergies Codeine Adverse Reaction (Verified 07/15/17 07:46) Nausea Home Medications: Ambulatory Orders Omeprazole Magnesium [Prilosec Otc] 20 mg PO DAILY 10/17/15 Baclofen 20 mg PO BID #20 tab 07/15/17 Gabapentin 300 mg PO BEDTIME #20 cap 07/15/17 Tramadol HCl 50 mg PO TID PRN #20 tab 07/15/17 predniSONE 20 mg PO DAILY #10 tab 07/15/17 Review of Systems - Review of Systems Constitutional: States: malaise, weakness - generalized EENTM: States: no symptoms reported Respiratory: States: no symptoms reported Cardiology: States: no symptoms reported Gastrointestinal/Abdominal: States: constipation, nausea Genitourinary: States: no symptoms reported Musculoskeletal: States: other - generalized body aches Skin: States: no symptoms reported Neurological: States: headache - mild Endocrine: States: increased thirst All other Systems: No Change from Baseline Past Medical History (General) - Patient Medical History Hx Seizures: No Hx Stroke: No Hx Dementia: No Hx Asthma: No Hx of COPD: No Hx Cardiac Disorders: No Hx Congestive Heart Failure: No Hx Pacemaker: No Hx Hypertension: No Hx Thyroid Disease: No Hx Diabetes: No Hx Gastroesophageal Reflux: Yes Hx Renal Disease: No Hx Cancer: No Hx of HIV: No Hx Hepatitis C: No Hx MRSA: No Surgical History: other - Vaccination History Hx Tetanus, Diphtheria Vaccination: No Hx Influenza Vaccination: No Hx Pneumococcal Vaccination: No - Social History Hx Tobacco Use: Yes Hx Chewing Tobacco Use: No Hx Alcohol Use: Yes - occasional Hx Substance Use: No Hx Substance Use Treatment: No Hx Depression: No Hx Physical Abuse: No Hx Emotional Abuse: No Hx Suspected Abuse: No - Female History Patient : No Family Medical History - Family History Father Family History: No Known Living Status: Hx Family Cancer: Yes - lungs,breast,oral,kidney-several family members Mother Living Status: Age at (years of age): 60 Cause of : cancer Physical Exam - Physical Exam General Appearance: Alert, No apparent distress Eye Exam: bilateral normal Ears, Nose, Throat: hearing grossly normal, normal ENT inspection, normal pharynx Neck: full range of motion, supple Respiratory: lungs clear, normal breath sounds, no respiratory distress, no accessory muscle use Cardiovascular/Chest: normal peripheral pulses, regular rate, rhythm, no edema Peripheral Pulses: radial,right: 2+, radial,left: 2+, dorsalis pedis,right: 2+, dorsalis pedis,left: 2+ Gastrointestinal/Abdominal: non tender, soft Rectal Exam: deferred Back Exam: no CVA tenderness, no vertebral tenderness Extremity: non-tender, normal inspection, no pedal edema, normal capillary refill 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 The patient's blood sugars upon arrival were greater than 400 and the patient is obviously dehydrated from this. He received 2 L of IV fluids as well as some insulin and a dose of glipizide. He is going to be placed on glipizide short-term in order to maintain a better blood sugar control. Longer term he should be switched to other medications including insulin. I'm going to write the patient for glipizide 5 mg each morning for the next month. He does need to get this filled here locally tomorrow. Additionally I'm writing him for Lantus 20 units subcutaneous every morning. [facility] He needs to finish getting set up with the local care provider. He does need much tighter blood sugar control to prevent complications. He needs to follow-up with his new provider next week. He needs to increase his fluid intake. ER warnings were given. - Results/Orders Results/Orders: Laboratory Tests 01/18/18 01/18/18 01/18/18 14:57 15:23 15:56 WBC RBC Hgb Hct MCV MCH MCHC RDW Plt Count MPV Absolute Neuts (auto) Absolute Lymphs (auto) Absolute Monos (auto) Absolute Eos (auto) Absolute Basos (auto) Neutrophils % Lymphocytes % Monocytes % Eosinophils % Basophils % PT INR PTT (SP) Sodium Potassium Chloride Carbon Dioxide Anion Gap BUN Creatinine BUN/Creatinine Ratio POC Glucose 335 H Random Glucose Serum Osmolality Calcium Total Bilirubin AST ALT Alkaline Phosphatase Creatine Kinase CK-MB (CK-2) CK-MB (CK-2) % Troponin I B-Natriuretic Peptide Serum Total Protein Albumin Globulin Albumin/Globulin Ratio Amylase 14 L Lipase Urine Color Yellow Urine Appearance Clear Urine pH 5.5 Ur Specific [place] 1.010 Urine Protein Negative Urine Glucose (UA) 500 H Urine Ketones 40 H Urine Blood Negative Urine Nitrite Negative Urine Bilirubin Negative Urine Urobilinogen 0.2 Ur Leukocyte Esterase Negative Urine RBC 0 Urine WBC 0 Ur Epithelial Cells 1-3 Urine Bacteria 0 01/18/18 01/18/18 01/18/18 15:56 15:56 15:56 WBC 3.1 L RBC 5.18 Hgb 12.0 L Hct 38.4 L MCV 74.1 L MCH 23.1 L MCHC 31.3 L RDW 19.2 H Plt Count 73 L MPV 8.8 Absolute Neuts (auto) 1.90 Absolute Lymphs (auto) 0.80 L Absolute Monos (auto) 0.30 Absolute Eos (auto) 0.10 Absolute Basos (auto) 0.00 Neutrophils % 61.8 Lymphocytes % 25.0 Monocytes % 10.5 H Eosinophils % 2.0 Basophils % 0.7 PT 10.2 INR 1.02 PTT (SP) 22.9 Sodium 131 L Potassium 4.4 Chloride 96 L Carbon Dioxide 21 Anion Gap 18.4 H BUN 23 H Creatinine 0.80 BUN/Creatinine Ratio 28.8 H POC Glucose Random Glucose 415 H* Serum Osmolality 284.6 Calcium 10.0 Total Bilirubin 0.9 AST 13 ALT 16 Alkaline Phosphatase 87 Creatine Kinase 23 L CK-MB (CK-2) 1.2 CK-MB (CK-2) % 5.22 H Troponin I < 0.02 B-Natriuretic Peptide 7.7 Serum Total Protein 7.3 Albumin 3.7 Globulin 3.6 H Albumin/Globulin Ratio 1.0 L Amylase Lipase 48 Urine Color Urine Appearance Urine pH Ur Specific [place] Urine Protein Urine Glucose (UA) Urine Ketones Urine Blood Urine Nitrite Urine Bilirubin Urine Urobilinogen Ur Leukocyte Esterase Urine RBC Urine WBC Ur Epithelial Cells Urine Bacteria 01/18/18 18:03 WBC RBC Hgb Hct MCV MCH MCHC RDW Plt Count MPV Absolute Neuts (auto) Absolute Lymphs (auto) Absolute Monos (auto) Absolute Eos (auto) Absolute Basos (auto) Neutrophils % Lymphocytes % Monocytes % Eosinophils % Basophils % PT INR PTT (SP) Sodium Potassium Chloride Carbon Dioxide Anion Gap BUN Creatinine BUN/Creatinine Ratio POC Glucose 241 H Random Glucose Serum Osmolality Calcium Total Bilirubin AST ALT Alkaline Phosphatase Creatine Kinase CK-MB (CK-2) CK-MB (CK-2) % Troponin I B-Natriuretic Peptide Serum Total Protein Albumin Globulin Albumin/Globulin Ratio Amylase Lipase Urine Color Urine Appearance Urine pH Ur Specific [place] Urine Protein Urine Glucose (UA) Urine Ketones Urine Blood Urine Nitrite Urine Bilirubin Urine Urobilinogen Ur Leukocyte Esterase Urine RBC Urine WBC Ur Epithelial Cells Urine Bacteria Departure - Departure Clinical Impression: Dehydration Uncontrolled diabetes mellitus Qualifiers: Diabetes mellitus type: type 2 Glycemic state: with hyperglycemia Qualified Code(s): E11.65 - Type 2 diabetes mellitus with hyperglycemia Disposition: Discharge to Home or Self Care Condition: Fair Departure Forms: ED Discharge - Pt. Copy, Patient Portal Self Enrollment Diet: diabetic diet Activity: increase activity as tolerated Referrals: Anastasiia Mortensen NP [Primary Care Provider] - 1-5 Days Home Medications: Ambulatory Orders Omeprazole Magnesium [Prilosec Otc] 20 mg PO DAILY 10/17/15 Baclofen 20 mg PO BID #20 tab 07/15/17 Gabapentin 300 mg PO BEDTIME #20 cap 07/15/17 Tramadol HCl 50 mg PO TID PRN #20 tab 07/15/17 predniSONE 20 mg PO DAILY #10 tab 07/15/17 Additional Instructions: the patient's 57-year-old male presenting to the emergency room secondary to uncontrolled type 2 diabetes. The patient's blood sugars upon arrival were greater than 400 and the patient is obviously dehydrated from this. He received 2 L of IV fluids as well as some insulin and a dose of glipizide. He is going to be placed on glipizide short-term in order to maintain a better blood sugar control. Longer term he should be switched to other medications including insulin. I'm going to write the patient for glipizide 5 mg each morning for the next month. He does need to get this filled here locally tomorrow. Additionally I'm writing him for Lantus 20 units subcutaneous every morning. [facility] He needs to finish getting set up with the local care provider. He does need much tighter blood sugar control to prevent complications. He needs to follow-up with his new provider next week. He needs to increase his fluid intake. ER warnings were given.
[2018-01-18] MEDS ORDERED: glipiZIDE 5 MG TAB ONE (18:27)
[2018-01-18] MEDS: glipiZIDE 5 MG TAB PO ONE (18:33)
[2018-01-18 18:39] VITALS: BP 156/78; TEMP 98; O2SAT 97
== END 2018-01-18 18:35 | disposition home or self-care (01) ==
LOC: ER 14:49
DX: E11.65 Type 2 diabetes mellitus with hyperglycemia (principal); R53.1 Weakness; R11.2 Nausea with vomiting, unspecified; K21.9 Gastro-esophageal reflux disease without esophagitis; Z87.891 Personal history of nicotine dependence; Z88.5 Allergy status to narcotic agent
CPT/HCPCS: 36415; 36416; 74019; 80053; 81001; 82150; 82550; 82553; 82948; 83690; 83880; 84484; 85025; 85610; 85730; J1815; J7030

== ENCOUNTER → 2018-01-21 | Outpatient (CLI) | payer OTHER | LOC: LAB.O 16:16 | PROVIDERS: ATTEND Nurse Practitioner Family | DX: R73.09 Other abnormal glucose (principal) ==

== ENCOUNTER → 2018-05-15 | Outpatient (CLI) | payer OTHER | LOC: LAB.O 08:13 | DX: E11.9 Type 2 diabetes mellitus without complications (principal) ==

== ENCOUNTER → 2018-05-18 | Outpatient (CLI) | payer OTHER | LOC: LAB.O 08:27 | DX: D64.9 Anemia, unspecified (principal); D72.819 Decreased white blood cell count, unspecified ==

== ENCOUNTER 2018-07-27 15:19 | Emergency (ER) | payer OTHER, SELFPAY ==
--- NOTE | 2018-07-27 16:27 | RAD ---
EXAM DESCRIPTION: Left hip, 2 radiographs CLINICAL HISTORY: Left hip pain. No trauma FINDINGS/ IMPRESSION: Mild joint space narrowing of the bilateral hips superiorly No fracture of the proximal femora or pelvis. No focal osteochondral lesion. Normal mineralization of the femoral head Slight increased density of the medial left hip joint space on both the AP and frog-leg lateral without well delineated etiology. This may be sclerosis from osteoarthritis. Consider CT characterization Mild osteoarthritis sacroiliac joints and pubic symphysis Electronically signed by: Marcello Garay MD 07/27/2018 4:24 PM CDT
--- NOTE | 2018-07-27 17:19 | ED.PDOC ---
History of Present Illness - General Chief Complaint: Lower Extremity Injury Stated Complaint: HIP PAIN Time Seen by Provider: 07/27/18 15:43 Source: patient, family Exam Limitations: no limitations - History of Present Illness Initial Comments: IS A [employer]. 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 TODAY HAS L HIP PAIN. NO ACUTE TRAUMA. Occurred: this morning Pain - Lower Extremity: severe: Left Thigh/Hip Method of Injury: other - REPETITIVE USE Improving Factors: immobilization Worsening Factors: movement Allergies/Adverse Reactions: Allergies Codeine Adverse Reaction (Verified 07/15/17 07:46) Nausea Home Medications: Ambulatory Orders Insulin Glargine 100U/ml [Lantus] 45 unit SUBCU DAILY 07/27/18 Lisinopril [Prinivil] 20 mg PO DAILY 07/27/18 Metformin HCl 500 mg PO BID 07/27/18 Methylprednisolone [Medrol Dose Simon] 4 mg PO DAILY #1 tab 07/27/18 Review of Systems - Review of Systems Constitutional: States: no symptoms reported EENTM: States: no symptoms reported Respiratory: States: no symptoms reported Cardiology: States: no symptoms reported Gastrointestinal/Abdominal: States: no symptoms reported Genitourinary: States: no symptoms reported Musculoskeletal: States: see HPI, joint pain. Denies: neck pain Skin: States: no symptoms reported Neurological: States: no symptoms reported. Denies: paresthesia, weakness Endocrine: States: no symptoms reported Hematologic/Lymphatic: States: no symptoms reported All other Systems: Reviewed and Negative Past Medical History (General) - Patient Medical History Hx Seizures: No Hx Stroke: No Hx Dementia: No Hx Asthma: No Hx of COPD: No Hx Cardiac Disorders: No Hx Congestive Heart Failure: No Hx Pacemaker: No Hx Hypertension: No Hx Thyroid Disease: No Hx Diabetes: No Hx Gastroesophageal Reflux: Yes Hx Renal Disease: No Hx Cancer: No Hx of HIV: No Hx Hepatitis C: No Hx MRSA: No Surgical History: no surgical history - Vaccination History Hx Tetanus, Diphtheria Vaccination: Yes Hx Influenza Vaccination: No Hx Pneumococcal Vaccination: No Immunizations Up to Date: Yes - Social History Hx Tobacco Use: Yes Hx Chewing Tobacco Use: No Hx Alcohol Use: No Hx Substance Use: No Hx Substance Use Treatment: No Hx Depression: No Hx Physical Abuse: No Hx Emotional Abuse: No Hx Suspected Abuse: No - Female History Patient : No Family Medical History - Family History Father Family History: No Known Living Status: Hx Family Cancer: Yes - lungs,breast,oral,kidney-several family members Mother Living Status: Age at (years of age): 60 Cause of : cancer Physical Exam - Physical Exam General Appearance: Alert, Well Hydrated Eyes, Ears, Nose, Throat: PERRL/EOMI, normal ENT inspection Neck: non-tender, full range of motion Cardiovascular/Respiratory: regular rate, rhythm, no M/R/G Gastrointestinal/Abdominal: non-tender, no organomegaly Back: normal inspection, no CVA tenderness, no vertebral tenderness Thigh/Hip: normal inspection, pain - L HIP: POS SLR, MADDIE, AND FADIR CAUSE PAIN IN L HIP AND L INGUINAL REGION (C/W ACETABULAR PATHOLOGY) Leg: normal inspection, non-tender, no evidence of injury, normal ROM Knee: normal inspection, non-tender, no evidence of injury, normal ROM Ankle: normal inspection, non-tender, no evidence of injury, normal ROM Foot: normal inspection, non-tender, no evidence of injury, normal ROM Neuro/Tendon: normal sensation, normal motor functions, normal tendon functions, responds to pain Mental Status: alert, oriented x 3 Skin: normal color, warm/dry Progress - Progress Progress: 07/27/18 17:22 L HIP XRAY: O.A. OF HIP AND SI JOINT. STEROID PACK. SEE FOR CHRONIC TX. Departure - Departure Clinical Impression: Left hip pain, Sacroiliac joint dysfunction of left side Osteoarthritis of left hip Qualifiers: Osteoarthritis type: primary Qualified Code(s): M16.12 - Unilateral primary osteoarthritis, left hip Disposition: Discharge to Home or Self Care Condition: Good Departure Forms: ED Discharge - Pt. Copy, Patient Portal Self Enrollment Instructions: Osteoarthritis (DC) Diet: resume usual diet Activity: increase activity as tolerated Referrals: Anastasiia Mortensen NP [Primary Care Provider] - 1-2 Weeks Prescriptions: Methylprednisolone [Medrol Dose Simon] 4 mg PO DAILY #1 tab Home Medications: Ambulatory Orders Insulin Glargine 100U/ml [Lantus] 45 unit SUBCU DAILY 07/27/18 Lisinopril [Prinivil] 20 mg PO DAILY 07/27/18 Metformin HCl 500 mg PO BID 07/27/18 Methylprednisolone [Medrol Dose Simon] 4 mg PO DAILY #1 tab 07/27/18
[2018-07-27] MEDS: KETOROLAC TROMETHAMINE INJ 60 MG/2 ML VIAL IM ONE (17:28)
[2018-07-27] MEDS: methylPREDNISolone ACETATE 80 MG/ML VIAL IM ONE (17:28)
[2018-07-27 17:51] VITALS: BP 129/94; TEMP 97.6; O2SAT 96
== END 2018-07-27 17:54 | disposition home or self-care (01) ==
LOC: ER 15:19
DX: M16.12 Unilateral primary osteoarthritis, left hip (principal); M25.9 Joint disorder, unspecified; K21.9 Gastro-esophageal reflux disease without esophagitis; Z87.891 Personal history of nicotine dependence; Z88.5 Allergy status to narcotic agent; Z79.899 Other long term (current) drug therapy
CPT/HCPCS: 73502; J1030; J1885

== ENCOUNTER 2018-08-30 09:22 | Emergency (ER) | payer OTHER ==
[2018-08-30] MEDS ORDERED: SODIUM CHLORIDE 0.9% (FLUSH) 10 ML SYG IV PRN (09:51)
[2018-08-30] MEDS ORDERED: ONDANSETRON INJ 4 MG/2 ML VIAL IV ONE (09:51)
[2018-08-30] MEDS ORDERED: SODIUM CHLORIDE 0.9% 1000ML 1,000 ML IVS ONE (09:51)
[2018-08-30] MEDS ORDERED: CLINDAMYCIN IV 900MG 900 MG in PREMIX BAG 1 BAG IVPB ONE (09:51)
[2018-08-30] MEDS ORDERED: fentaNYL CITRATE INJ 50 MCG/ML AMP IV ONE (09:52)
--- NOTE | 2018-08-30 09:55 | ED.PDOC ---
History of Present Illness - General Chief Complaint: Dental/Mouth Stated Complaint: Pt complains of left jaw pain/headache, N/V Time Seen by Provider: 08/30/18 09:32 Source: patient Exam Limitations: no limitations - History of Present Illness Initial Comments: PT PRESENTS TO THE ED WITH COMPLAINT OF LEFT JAW PAIN AND SWELLING FOR THE PAST 5 DAYS ASSOCIATED WITH INTERMITTENT EPISODES OF NAUSEA, COFFEE GROUND EMESIS, AND FEVER TMAX 104. PT STATES THAT HE WAS STARTED ON PENICILLIN FOR A DENTAL ABSCESS 5 DAYS AGO AND SINCE THEN SYMPTOMS HAVE GOTTEN WORSE. PT REPORTS HE IS SCHEDULED TO HAVE TOOTH PULLED TOMORROW. PT DENIES HISTORY OF PUD OR GI BLEEDING IN THE PAST. Timing/Duration: getting worse Severity: moderate Improving Factors: nothing Worsening Factors: nothing Associated Symptoms: fever/chills, loss of appetite, nausea/vomiting Allergies/Adverse Reactions: Allergies Codeine Adverse Reaction (Verified 08/30/18 09:51) Nausea Home Medications: Ambulatory Orders Insulin Glargine 100U/ml [Lantus] 45 unit SUBCU DAILY 07/27/18 Lisinopril [Prinivil] 10 mg PO DAILY 07/27/18 Metformin HCl 500 mg PO BID 07/27/18 Pantoprazole Tablet [Protonix] 40 mg PO ACBK 30 Days #30 tab 08/30/18 Penicillin V Potassium [Penicillin Vk] 500 mg PO DAILY 08/30/18 Promethazine Tab [Phenergan Tablet] 25 mg PO Q6H PRN #15 tab 08/30/18 Sucralfate Suspension [Carafate Suspension] 1 gm PO ACHS 14 Days #560 ml 08/30/18 Tramadol-Acetaminophen [Ultracet] 1 - 2 tab PO Q6HR PRN #30 tab 08/30/18 Review of Systems - Review of Systems Constitutional: States: chills, fever EENTM: States: see HPI, mouth pain, mouth swelling. Denies: nose congestion, throat pain Respiratory: Denies: cough, short of breath Cardiology: Denies: chest pain, palpitations Gastrointestinal/Abdominal: States: abdominal pain, nausea, vomiting. Denies: diarrhea Genitourinary: Denies: dysuria, frequency Musculoskeletal: Denies: joint pain, joint swelling Skin: Denies: dryness, lesions Neurological: States: headache Endocrine: States: no symptoms reported Hematologic/Lymphatic: States: no symptoms reported Past Medical History (General) - Patient Medical History Hx Seizures: No Hx Stroke: No Hx Dementia: No Hx Asthma: No Hx of COPD: No Hx Cardiac Disorders: No Hx Congestive Heart Failure: No Hx Pacemaker: No Hx Hypertension: No Hx Thyroid Disease: No Hx Diabetes: Yes Hx Gastroesophageal Reflux: Yes Hx Renal Disease: No Hx Cancer: No Hx of HIV: No Hx Hepatitis C: No Hx MRSA: No Surgical History: no surgical history - Vaccination History Hx Tetanus, Diphtheria Vaccination: Yes Hx Influenza Vaccination: No Hx Pneumococcal Vaccination: No Immunizations Up to Date: - Unk - Social History Hx Tobacco Use: Yes Hx Chewing Tobacco Use: No Hx Alcohol Use: Yes - Ocassional Hx Substance Use: No Hx Substance Use Treatment: No Hx Depression: No Hx Physical Abuse: No Hx Emotional Abuse: No Hx Suspected Abuse: No - Female History Patient is a Female of Child Bearing Age (10 -59 yrs old): No Patient : No Family Medical History - Family History Father Family History: No Known Living Status: Hx Family Cancer: Yes - lungs,breast,oral,kidney-several family members Mother Living Status: Age at (years of age): 60 Cause of : cancer Physical Exam - Physical Exam General Appearance: Alert, Obvious distress, Well Developed, Well Groomed, Well Hydrated Ears, Nose, Throat: hearing grossly normal, other - GINGIVAL EDEMA AND TTP OF THE LEFT 3RD MANDIBULAR MOLAR. Neck: full range of motion, supple, lymphadenopathy (L), tender lateral Respiratory: lungs clear, normal breath sounds, no respiratory distress Cardiovascular/Chest: regular rate, rhythm, no murmur Gastrointestinal/Abdominal: non tender, soft Extremity: non-tender, normal inspection Neurologic: alert, normal mood/affect, oriented x 3 Skin Exam: normal color, warm/dry Progress - Progress Progress: 08/30/18 11:43 PT REPORTS IMPROVEMENT IN SYMPTOMS AFTER IV FLUIDS. LABS, CT FINDINGS, AND PLAN DISCUSSED. - Results/Orders Results/Orders: Laboratory Tests 08/30/18 08/30/18 08/30/18 10:00 10:00 10:46 WBC 4.1 L RBC 5.30 Hgb 13.8 L Hct 42.8 MCV 80.7 MCH 26.1 L MCHC 32.3 L RDW 18.4 H Plt Count 79 L MPV 8.5 Absolute Neuts (auto) 3.50 Absolute Lymphs (auto) 0.20 L Absolute Monos (auto) 0.40 Absolute Eos (auto) 0.00 Absolute Basos (auto) 0.00 Neutrophils % 83.9 H Lymphocytes % 5.5 L Monocytes % 10.1 H Eosinophils % 0.3 L Basophils % 0.2 Sodium 133 L Potassium 4.1 Chloride 100 L Carbon Dioxide 21 Anion Gap 16.1 BUN 32 H Creatinine 0.80 BUN/Creatinine Ratio 40.0 H Random Glucose 183 H Serum Osmolality 278.0 Calcium 9.7 Total Bilirubin 0.8 Direct Bilirubin 0.3 H Indirect Bilirubin 0.5 AST 27 ALT 23 Alkaline Phosphatase 84 Serum Total Protein 7.8 Albumin 3.8 Amylase 10 L Lipase 26 Urine Color [place] Urine Appearance Clear Urine pH 5.5 Ur Specific [place] 1.020 Urine Protein 30 Urine Glucose (UA) 500 H Urine Ketones Trace Urine Blood Trace-intact H Urine Nitrite Negative Urine Bilirubin Negative Urine Urobilinogen 0.2 Ur Leukocyte Esterase Negative Urine RBC 0-1 Urine WBC 0 Ur Epithelial Cells 0 Urine Bacteria 0 - EKG/XRAY/CT EKG: Sinus, Tachy - @113BPM, NL INTERVALS, NL AXIS, no ST T wave changes - LAE, Unchanged from - 02/21/16 Departure - Departure Clinical Impression: Dental infection, Dehydration, Tachycardia, Pancytopenia, Coffee ground emesis Time of Disposition: 12:05 Disposition: Discharge to Home or Self Care Condition: Fair Departure Forms: ED Discharge - Pt. Copy, Patient Portal Self Enrollment Instructions: DI for Mouth Pain Referrals: Anastasiia Mortensen NP [Primary Care Provider] - 1-5 Days VIRIDIANA BELL MD [Physicians] - 1-2 Weeks Prescriptions: Tramadol-Acetaminophen [Ultracet] 1 - 2 tab PO Q6HR PRN #30 tab PRN Reason: Pain Pantoprazole Tablet [Protonix] 40 mg PO ACBK 30 Days #30 tab Promethazine Tab [Phenergan Tablet] 25 mg PO Q6H PRN #15 tab PRN Reason: Nausea/Vomiting Sucralfate Suspension [Carafate Suspension] 1 gm PO ACHS 14 Days #560 ml Home Medications: Ambulatory Orders Insulin Glargine 100U/ml [Lantus] 45 unit SUBCU DAILY 07/27/18 Lisinopril [Prinivil] 10 mg PO DAILY 07/27/18 Metformin HCl 500 mg PO BID 07/27/18 Pantoprazole Tablet [Protonix] 40 mg PO ACBK 30 Days #30 tab 08/30/18 Penicillin V Potassium [Penicillin Vk] 500 mg PO DAILY 08/30/18 Promethazine Tab [Phenergan Tablet] 25 mg PO Q6H PRN #15 tab 08/30/18 Sucralfate Suspension [Carafate Suspension] 1 gm PO ACHS 14 Days #560 ml 08/30/18 Tramadol-Acetaminophen [Ultracet] 1 - 2 tab PO Q6HR PRN #30 tab 08/30/18
[2018-08-30] MEDS ORDERED: CLINDAMYCIN IV 900MG 50 ML IVPB ONE (09:57)
[2018-08-30] MEDS ORDERED: PANTOPRAZOLE SODIUM IV 40 MG VIAL ONE (10:01)
--- NOTE | 2018-08-30 10:53 | CT ---
CT MAXILLOFACIAL WITHOUT IV CONTRAST HISTORY: 58 years Male LEFT FACIAL SWELLING, FEVER COMPARISON: None. TECHNIQUE: Serial helical tomographic images of the facial bones were obtained without the use of intravenous contrast. Additionally, multiplanar reformats in the axial and coronal planes were also obtained. This exam was performed according to our departmental dose-optimization program, which includes automated exposure control, adjustment of the mA and/or kV according to patient size and/or use of iterative reconstruction technique. FINDINGS: Beam hardening artifact from dental amalgam limits portions of the study. Included intracranial structures are unremarkable. The orbits and their contents appear unremarkable. Mild scattered paranasal sinus mucosal thickening. Mastoid air cells and middle ear cavities are clear. Included surrounding soft tissues demonstrate no focal abnormality by CT. No fluid collection identified to suggest abscess formation. A few mildly prominent cervical lymph nodes are present bilaterally, not definitively enlarged by size criteria. The osseous structures and overlying soft tissues of the face and included skull demonstrate no acute abnormality. IMPRESSION: Mild paranasal sinus disease suspected. Otherwise no acute pathologic process detected within the limits of this noncontrast CT. Electronically signed by: Tim Blunt MD 08/30/2018 10:50 AM CDT
[2018-08-30 12:34] VITALS: BP 126/70; TEMP 98.7; O2SAT 94
[2018-08-31] MEDS ORDERED: PANTOPRAZOLE SODIUM IV 40 MG VIAL IV SCH (06:30)
== END 2018-08-30 12:28 | disposition home or self-care (01) ==
LOC: ER 09:22
DX: K04.7 Periapical abscess without sinus (principal); E86.0 Dehydration; R00.0 Tachycardia, unspecified; D61.818 Other pancytopenia; R11.2 Nausea with vomiting, unspecified; K21.9 Gastro-esophageal reflux disease without esophagitis; E11.9 Type 2 diabetes mellitus without complications; Z79.4 Long term (current) use of insulin; Z79.899 Other long term (current) drug therapy; Z87.891 Personal history of nicotine dependence

== ENCOUNTER → 2018-08-31 | Outpatient (CLI) | payer OTHER | LOC: LAB.O 09:53 | PROVIDERS: ATTEND Internal Medicine Hematology & Oncology | DX: D50.9 Iron deficiency anemia, unspecified (principal); D64.9 Anemia, unspecified ==

== ENCOUNTER → 2018-12-20 | Outpatient (CLI) | payer OTHER ==
--- NOTE | 2018-12-20 12:48 | RAD ---
EXAM DESCRIPTION: Left hip, 2 radiographs CLINICAL HISTORY: HIP PAIN FINDINGS/ IMPRESSION: Mild joint space narrowing superiorly. No advanced arthrosis or focal osteochondral lesion No fracture of the left proximal femur or pelvis Moderate osteoarthritis of the bilateral sacroiliac joints and pubic symphysis Electronically signed by: Marcello Garay MD 12/20/2018 12:46 PM CDT
--- NOTE | 2018-12-20 12:48 | RAD ---
EXAM DESCRIPTION: Right hip, 2 radiographs CLINICAL HISTORY: HIP PAIN FINDINGS/ IMPRESSION: Mild joint space narrowing superiorly. No advanced arthrosis or focal osteochondral lesion No fracture of the right proximal femur or pelvis Moderate osteoarthritis of the bilateral sacroiliac joints and pubic symphysis Electronically signed by: Marcello Garay MD 12/20/2018 12:47 PM CDT
== END ==
LOC: LAB.O 09:47
PROVIDERS: ATTEND Nurse Practitioner Family
DX: M47.898 Other spondylosis, sacral and sacrococcygeal region (principal); M25.852 Other specified joint disorders, left hip; M25.851 Other specified joint disorders, right hip; D50.9 Iron deficiency anemia, unspecified

== ENCOUNTER → 2019-03-31 | Outpatient (CLI) | payer OTHER | LOC: YCFC.O 15:56 | PROVIDERS: ATTEND Family Medicine | DX: E11.9 Type 2 diabetes mellitus without complications (principal); D50.9 Iron deficiency anemia, unspecified; M62.81 Muscle weakness (generalized) ==

== ENCOUNTER → 2019-05-17 | Outpatient (CLI) | payer OTHER ==
--- NOTE | 2019-05-19 10:10 | CT ---
Procedure: CT LUNG SCREENING Exam Date: 05/17/2019 Ordering Provider: Kenroy Schafer Clinical Indication: PERSONAL HISTORY OF TOBACCO USE . Current cigarette smoker. 30 pack years. This patient meets eligibility criteria for low-dose CT lung cancer screening. Comparison: Chest x-ray May 2015. Technique: Using a multislice scanner, sequential helical axial imaging was obtained in the thorax, 2.5 mm thickness, 2.5 mm separation, from the level of the thoracic inlet through the lung bases without IV contrast. A low dose protocol was utilized for BMI less than 30: BMI: 29.9. CTDI: 1.76 mGy. 120. kVp. 45 mA. DLP 68.22 mGy-cm. 2D sagittal and coronal reconstructed images, 6.0 mm thickness, were obtained. This exam was performed according to our departmental dose optimization program which includes use of automated exposure control, adjustment of the mA and/or kV according to patient size and/or use of iterative reconstruction technique. Nodule measurements under 10 mm are given as mean value of 3 axes diameters. FINDINGS: Lungs and large airways: Minimal posterior dependent atelectasis in the lower lobes more right than left with pleural parenchymal scarring. Bilateral upper lobe mildly prominent parenchymal blebs with decreasing in number in the lower lung andino. Pleura and space: Focal pleural thickening sporadically bilaterally with no effusion or pneumothorax. Mediastinum and asael: evaluation limited by low dose technique and lack of IV contrast. Normal sized lymph nodes, no dominant soft tissue mass. Heart and great vessels: Minimal calcification in the left main coronary artery. Also origin of the left subclavian artery and aortic arch. Chest wall, lower neck, axillae: Evaluation also limited by same factors as described above. Unremarkable. Upper abdomen: Evaluation limited by low-dose technique. No fluid or free air. Osseous structures: Evaluation limited by low dose MIP technique. Spondylosis midthoracic spine. IMPRESSION: 1. Emphysematous changes predominantly in the upper lung andino. No abnormal nodules or mass. No focal infiltrate.. [facility] Best Practice Recommendations: please see below for Lung RADS category and FOLLOW-UP.* *Lung RADS category Category 1 - No nodule or definitely benign nodules (probability of malignancy less than 1%). Follow-up: Continue annual screening with Low Dose Chest CT in 12 months. Electronically signed by: Zack Moran MD 05/19/2019 10:08 AM [facility]
== END ==
LOC: CT 08:30
PROVIDERS: ATTEND Family Medicine
DX: Z87.891 Personal history of nicotine dependence (principal); J43.9 Emphysema, unspecified

== ENCOUNTER → 2020-03-19 | Outpatient (CLI) | payer OTHER | LOC: LAB.O 08:20 | PROVIDERS: ATTEND Family Medicine | DX: I10 Essential (primary) hypertension (principal); E11.9 Type 2 diabetes mellitus without complications; Z12.5 Encounter for screening for malignant neoplasm of prostate; R53.83 Other fatigue ==

== ENCOUNTER → 2020-05-24 | Outpatient (CLI) | payer OTHER ==
--- NOTE | 2020-05-26 10:00 | CT ---
Procedure: CT LUNG SCREENING Exam Date: May 24, 2020 Ordering Provider: Kenroy Schafer Clinical Indication: HX OF NICOTINE This patient meets eligibility criteria for low-dose CT lung cancer screening. Comparison: Low-dose CT lung cancer screening examination May 17, 2019. Technique: Using a multislice scanner, sequential helical axial imaging was obtained in the thorax, 2.5 mm thickness, 2.5 mm separation, from the level of the thoracic inlet through the lung bases without IV contrast. A low dose protocol was utilized for BMI less than 30: BMI: 29. CTDI: 1.76 mGy. 120. kVp. 45 mA. DLP 71 mGy-cm. 2D sagittal and coronal reconstructed images, 6.0 mm thickness, were obtained. This exam was performed according to our departmental dose optimization program which includes use of automated exposure control, adjustment of the mA and/or kV according to patient size and/or use of iterative reconstruction technique. Nodule measurements under 10 mm are given as mean value of 3 axes diameters. FINDINGS: Lungs and large airways: Scattered small bilateral blebs predominantly in the upper lung andino. No abnormal nodule and no mass. No focal or interval infiltrate. Pleural-parenchymal scarring left lower lobe Pleura and space: No calcifications. No acute process. Mediastinum and asael: evaluation limited by low dose technique and lack of IV contrast. Small lymph nodes there is no dominant soft tissue mass. Heart and great vessels: Calcification coronary arteries and aortic arch and descending thoracic aorta. Chest wall, lower neck, axillae: Evaluation also limited by same factors as described above. Axillary nodes with no dominant soft tissue mass. Upper abdomen: Evaluation limited by low-dose technique. No free air or free fluid. Normal size and density of the adrenal glands. Surgical clips gallbladder fossa with no fluid. Osseous structures: Evaluation limited by low dose MIP technique. 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 Also manubrial sternal joint. Minimal spondylosis in the upper and mid thoracic spine disc spaces. IMPRESSION: Mild emphysematous changes predominantly in the upper lung andino. No abnormal nodule and no mass. No focal or interval development of infiltrate. [facility] Best Practice Recommendations: please see below for Lung RADS category and FOLLOW-UP.* *Lung RADS category Category 1 - No nodule or definitely benign nodules (probability of malignancy less than 1%). Follow-up: Continue annual screening with Low Dose Chest CT in 12 months. Electronically signed by: Zack Moran MD 05/26/2020 9:58 AM [facility]
== END ==
LOC: CT 13:48
PROVIDERS: ATTEND Family Medicine
DX: Z12.2 Encounter for screening for malignant neoplasm of respiratory organs (principal); J43.9 Emphysema, unspecified; Z87.891 Personal history of nicotine dependence